=== PATIENT | female | born 2005 | race Hispanic/Latino ===

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

== ENCOUNTER 2024-04-11 11:49 | Emergency (ER) | payer MEDICAID ==
[~2024-04-11] VITALS: Ht 157.5 cm; Wt 65.8 kg
[~2024-04-11 11:49] MED LIST: ONDA-243 PO; SULF1TAB42 PO
[2024-04-11] MEDS: 0.9%NACL 1000ML 1,000 ML IV ONE (13:09)
[2024-04-11] MEDS: CLINDAMYCIN IVPB 600MG/50ML 50 ML IV ONE (13:09)
[2024-04-11 13:18] LABS: BASOPHILS # (AUTO) 0.05 K/uL (0.00-0.20); BASOPHILS % (AUTO) 0.4 % (0.0-5.0); EOSINOPHILS # (AUTO) 0.31 K/uL (0.00-0.70); EOSINOPHILS % (AUTO) 2.3 % (0.0-8.0); HEMATOCRIT 37.7 % (36-48); IMMATURE GRANULOCYTE ABSOLUTE 0.12 K/uL (0-1); LYMPHOCYTES # (AUTO) 2.1 K/uL (1.0-4.8); MEAN CORPUSCULAR HEMOGLOBIN 28.2 pg (27.0-33.0); MEAN CORPUSCULAR HGB CONC 32.9 g/dL (32.0-36.0); MEAN CORPUSCULAR VOLUME 85.7 fL (80-100); MONOCYTES # (AUTO) 1.3 K/uL (0.1-1.0); NEUTROPHILS # (AUTO) 9.3 K/uL (1.8-7.7); NEUTROPHILS % (AUTO) 70.4 % (40.0-77.0); PLATELET COUNT (AUTO) 248 K/uL (130-400); WHITE BLOOD COUNT (AUTO) 13.2 K/uL (4.8-10.8)
[2024-04-11 13:26] LABS: CREATININE 0.6 mg/dL (0.5-1.0); POTASSIUM 3.7 mmol/L (3.5-5.1)
[2024-04-11 14:08] VITALS: BP 100/74; PULSE 98; RESP 20; O2SAT 100
[2024-04-11] MEDS ORDERED: KETO10TA2 PO (14:18)
[2024-04-11] MEDS: KETOROLAC 30MG VIAL (30MG/ML) IVP ONE (14:20)
[2024-04-11] MEDS: ONDANSETRON 4MG INJ IVP ONE (14:20)
[2024-04-11] MEDS: MORPHINE 2 MG SYG IVP ONE (14:21)
== END 2024-04-11 14:41 | disposition home or self-care (01) ==
LOC: EDH 11:49
DX: L05.01 Pilonidal cyst with abscess (principal); Z79.899 Other long term (current) drug therapy
CPT/HCPCS: 99284; 96374; 96375; 80048; 84703; 85025; 83605; 36415; 84145; J2270; J7030; J2405; J1885; J3490

== ENCOUNTER 2024-04-13 16:29 | Inpatient (IN) | payer MEDICAID ==
[~2024-04-13] VITALS: Ht 157.5 cm; Wt 98.9 kg
[~2024-04-13 16:29] MED LIST changes: +KETO10TA2 PO
[2024-04-13 17:51] LABS: BASOPHILS # (AUTO) 0.04 K/uL (0.00-0.20); BASOPHILS % (AUTO) 0.3 % (0.0-5.0); EOSINOPHILS # (AUTO) 0.21 K/uL (0.00-0.70); EOSINOPHILS % (AUTO) 1.5 % (0.0-8.0); HEMATOCRIT 36.2 % (36-48); MEAN CORPUSCULAR HEMOGLOBIN 28.1 pg (27.0-33.0); MEAN CORPUSCULAR HGB CONC 33.1 g/dL (32.0-36.0); MEAN CORPUSCULAR VOLUME 84.8 fL (80-100); MONOCYTES # (AUTO) 1.2 K/uL (0.1-1.0); MONOCYTES % (AUTO) 8.6 % (3.0-13.0); NEUTROPHILS # (AUTO) 9.7 K/uL (1.8-7.7); NEUTROPHILS % (AUTO) 67.9 % (40.0-77.0); PLATELET COUNT (AUTO) 288 K/uL (130-400); RED BLOOD CELL COUNT(AUTO) 4.27 MIL/uL (4.00-5.50); RED CELL DISTRIBUTION WIDTH 12.9 % (11.0-15.5); WHITE BLOOD COUNT (AUTO) 14.3 K/uL (4.8-10.8)
[2024-04-13 18:02] LABS: CREATININE 0.7 mg/dL (0.5-1.0); POTASSIUM 3.6 mmol/L (3.5-5.1)
[2024-04-13] MEDS: ZOSYN 3.375GM+NS 50ML 50 ML IVPB STA (19:21)
[2024-04-13] MEDS: ONDANSETRON 4MG INJ IVP ONE (19:21)
[2024-04-13] MEDS: LIDOCAINE HCL 1% 20 ML VIAL INJ SCH (19:21)
[2024-04-13] MEDS: acetaMINOPHEN 500 MG TABLET PO ONE (19:21)
[2024-04-13] MEDS: [UNRECOGNIZED DRUG - OTHER] IV ONE (19:21)
[2024-04-13] MEDS: MORPHINE 4 MG SYG IVP ONE (19:21)
[2024-04-13] MEDS ORDERED: ONDANSETRON 4MG INJ IV PRN (21:30)
[2024-04-13] MEDS ORDERED: MORPHINE 2 MG SYG IV PRN (21:30)
[2024-04-13] MEDS ORDERED: acetaMINOPHEN 325 MG TAB PO PRN ×2 (21:30)
[2024-04-13 22:30] VITALS: BP 122/73; PULSE 88; RESP 20
[2024-04-14 04:00] VITALS: BP 115/64; PULSE 84; RESP 18
[2024-04-14 04:44] LABS: BASOPHILS # (AUTO) 0.04 K/uL (0.00-0.20); BASOPHILS % (AUTO) 0.3 % (0.0-5.0); EOSINOPHILS # (AUTO) 0.35 K/uL (0.00-0.70); EOSINOPHILS % (AUTO) 2.7 % (0.0-8.0); HEMATOCRIT 34.2 % (36-48); IMMATURE GRANULOCYTE ABSOLUTE 0.11 K/uL (0-1); LYMPHOCYTES # (AUTO) 3.5 K/uL (1.0-4.8); LYMPHOCYTES % (AUTO) 27.1 % (21.0-51.0); MEAN CORPUSCULAR HEMOGLOBIN 28.4 pg (27.0-33.0); MEAN CORPUSCULAR HGB CONC 32.5 g/dL (32.0-36.0); MEAN CORPUSCULAR VOLUME 87.5 fL (80-100); MONOCYTES # (AUTO) 1.2 K/uL (0.1-1.0); NEUTROPHILS # (AUTO) 7.7 K/uL (1.8-7.7); PLATELET COUNT (AUTO) 254 K/uL (130-400); RED BLOOD CELL COUNT(AUTO) 3.91 MIL/uL (4.00-5.50); RED CELL DISTRIBUTION WIDTH 13.2 % (11.0-15.5); WHITE BLOOD COUNT (AUTO) 12.8 K/uL (4.8-10.8)
[2024-04-14 04:57] LABS: HEMOGLOBIN A1C 5.5 % (4.0-6.0)
[2024-04-14 05:09] LABS: INR 0.94 (0.85-1.15); PROTHROMBIN TIME 10.2 SEC (9.6-11.6)
[2024-04-14 05:11] LABS: PARTIAL THROMBOPLASTIN TIME 26.4 SEC (26.3-35.5)
[2024-04-14] MEDS: ZOSYN 3.375GM+NS 50ML 50 ML IV SCH (05:15)
[2024-04-14 05:29] LABS: ALBUMIN 2.8 g/dL (3.5-5.0); BILIRUBIN,TOTAL 0.3 mg/dL (0.2-1.0); CREATININE 0.6 mg/dL (0.5-1.0); MAGNESIUM 1.9 mg/dL (1.80-2.40); POTASSIUM 3.5 mmol/L (3.5-5.1); TOTAL PROTEIN, SERUM 6.4 g/dL (6.0-8.3)
[2024-04-14 08:00] VITALS: BP 124/68; PULSE 86; RESP 16
[2024-04-14] MEDS: FAMOTIDINE 20MG TAB PO SCH (08:32)
[2024-04-14 11:55] VITALS: BP 107/61; PULSE 98; RESP 16
[2024-04-14 16:00] VITALS: BP 113/61; PULSE 94; RESP 18
[2024-04-14 20:00] VITALS: BP 144/74; PULSE 102; RESP 19; O2SAT 95
[2024-04-15] VITALS (9 sets, daily range): BP systolic 106–142; BP diastolic 61–81; PULSE 80–98; RESP 17–19; O2SAT 95–97
[2024-04-15 05:18] LABS: BASOPHILS # (AUTO) 0.04 K/uL (0.00-0.20); BASOPHILS % (AUTO) 0.4 % (0.0-5.0); EOSINOPHILS % (AUTO) 3.8 % (0.0-8.0); HEMATOCRIT 34.1 % (36-48); IMMATURE GRANULOCYTE ABSOLUTE 0.11 K/uL (0-1); LYMPHOCYTES # (AUTO) 3.4 K/uL (1.0-4.8); LYMPHOCYTES % (AUTO) 32.9 % (21.0-51.0); MEAN CORPUSCULAR HEMOGLOBIN 27.9 pg (27.0-33.0); MEAN CORPUSCULAR HGB CONC 32.6 g/dL (32.0-36.0); MEAN CORPUSCULAR VOLUME 85.7 fL (80-100); MONOCYTES # (AUTO) 0.8 K/uL (0.1-1.0); NEUTROPHILS # (AUTO) 5.6 K/uL (1.8-7.7); NEUTROPHILS % (AUTO) 53.8 % (40.0-77.0); PLATELET COUNT (AUTO) 276 K/uL (130-400); RED BLOOD CELL COUNT(AUTO) 3.98 MIL/uL (4.00-5.50); RED CELL DISTRIBUTION WIDTH 12.8 % (11.0-15.5); WHITE BLOOD COUNT (AUTO) 10.5 K/uL (4.8-10.8)
[2024-04-15 05:40] LABS: ALBUMIN 2.7 g/dL (3.5-5.0); BILIRUBIN,TOTAL 0.2 mg/dL (0.2-1.0); CREATININE 0.7 mg/dL (0.5-1.0); MAGNESIUM 1.8 mg/dL (1.80-2.40); POTASSIUM 4.6 mmol/L (3.5-5.1); TOTAL PROTEIN, SERUM 6.5 g/dL (6.0-8.3)
[2024-04-16 04:00] VITALS: BP 112/57; PULSE 82; RESP 19
[2024-04-16 05:47] LABS: BASOPHILS # (AUTO) 0.04 K/uL (0.00-0.20); BASOPHILS % (AUTO) 0.4 % (0.0-5.0); EOSINOPHILS # (AUTO) 0.34 K/uL (0.00-0.70); EOSINOPHILS % (AUTO) 3.1 % (0.0-8.0); HEMATOCRIT 36.9 % (36-48); LYMPHOCYTES # (AUTO) 3.1 K/uL (1.0-4.8); LYMPHOCYTES % (AUTO) 28.2 % (21.0-51.0); MEAN CORPUSCULAR HEMOGLOBIN 28.2 pg (27.0-33.0); MEAN CORPUSCULAR HGB CONC 32.8 g/dL (32.0-36.0); MONOCYTES # (AUTO) 0.7 K/uL (0.1-1.0); MONOCYTES % (AUTO) 6.8 % (3.0-13.0); NEUTROPHILS # (AUTO) 6.5 K/uL (1.8-7.7); NEUTROPHILS % (AUTO) 59.7 % (40.0-77.0); PLATELET COUNT (AUTO) 293 K/uL (130-400); RED BLOOD CELL COUNT(AUTO) 4.29 MIL/uL (4.00-5.50); RED CELL DISTRIBUTION WIDTH 12.6 % (11.0-15.5); WHITE BLOOD COUNT (AUTO) 10.9 K/uL (4.8-10.8)
[2024-04-16 06:01] LABS: BILIRUBIN,TOTAL 0.2 mg/dL (0.2-1.0); CREATININE 0.7 mg/dL (0.5-1.0); MAGNESIUM 1.8 mg/dL (1.80-2.40); POTASSIUM 4.1 mmol/L (3.5-5.1); TOTAL PROTEIN, SERUM 7.1 g/dL (6.0-8.3)
[2024-04-16 07:45] VITALS: BP 111/75; PULSE 78; RESP 18
[2024-04-16 08:26] VITALS: O2SAT 97
[2024-04-16] MEDS: MAGNESIUM 2GM PREMIX 50ML 50 ML IV PRN (10:34)
[2024-04-16 11:21] VITALS: BP 110/64; PULSE 85; RESP 19
[2024-04-16] MEDS ORDERED: FAMO20TA8 PO (12:36)
== END 2024-04-16 15:55 | disposition home or self-care (01) | DRG 383 ==
LOC: EDH 16:29 → OBSVTOIN 16:30 → EDHIP 16:30 → UNDOADMOB 21:29 → EDHIP 21:29 → 3BH 22:30 → EDHIP 22:30
PROVIDERS: ADMIT Hospitalist; ATTEND Hospitalist
DX: L05.01 Pilonidal cyst with abscess (principal); E66.9 Obesity, unspecified; F32.A Depression, unspecified; R73.9 Hyperglycemia, unspecified; F41.9 Anxiety disorder, unspecified; M53.3 Sacrococcygeal disorders, not elsewhere classified; Z90.49 Acquired absence of other specified parts of digestive tract; Z79.899 Other long term (current) drug therapy; Z68.39 Body mass index [BMI] 39.0-39.9, adult
CPT/HCPCS: 36415; 76857; 80048; 80053; 83036; 83605; 83735; 84145; 84703; 85025; 85610; 85730; 87040; 87070; 87076; 87086; 87186; 96365; G0378; J2270; J2405; J2543; J3475; J7030